=== PATIENT | male | born 1990 ===

== ENCOUNTER 2024-03-18 09:53 | Emergency (ER) | payer SELFPAY ==
[~2024-03-18] VITALS: Ht 175.3 cm; Wt 72.7 kg
[2024-03-18 10:03] VITALS: BP 148/104; PULSE 76; RESP 16; TEMP 98.2
[2024-03-18] MEDS: LIDOCAINE 1% 10 ML VIAL IARTIC ONE (10:31)
[2024-03-18] MEDS: HYDROmorphone HCL 2 MG/ML SYRINGE IVP ONE (10:31)
[2024-03-18] MEDS: BUPIVACAINE HCL/PF 0.25% 10 ML VIAL IARTIC ONE (10:32)
[2024-03-18] MEDS: SODIUM CHLORIDE 0.9% 1,000 ML IV ONE (10:32)
== END 2024-03-18 10:51 | disposition left against medical advice (07) ==
LOC: EMS 09:53
DX: M24.411 Recurrent dislocation, right shoulder (principal); F17.210 Nicotine dependence, cigarettes, uncomplicated; Z90.49 Acquired absence of other specified parts of digestive tract
CPT/HCPCS: 99283; 73030; J7030; J1170; J3490